=== PATIENT | male | born 1950 | race Caucasian/White ===

== ENCOUNTER 2016-07-14 08:53 | Outpatient (CLI) | payer OTHER ==
--- NOTE | 2016-07-14 10:51 | DIAGNOSTIC IMAGING REPORT ---
PROCEDURE: XR CHEST 2 VIEW INDICATION: COUGH TECHNIQUE: Two views. COMPARISON: None. FINDINGS: The cardiomediastinal contour and central vasculature are within normal limits. Minor patchy parenchymal density in the right infrahilar region/ right middle lobe. No pleural effusion, or pneumothorax. The visualized osseous structures demonstrate flowing anterior osteophytes in the mid thoracic spine. IMPRESSION: 1. Small opacity right middle lobe suspicious for infectious or inflammatory process. Given history of smoking, follow-up chest x-ray in 1 month recommended to ensure clearance. 2. Anterior endplate osteophytes in the mid thoracic spine.
== END 2016-07-14 23:00 ==
LOC: XR SRH 08:53
DX: R05 Cough (principal); R91.8 Other nonspecific abnormal finding of lung field; M25.78 Osteophyte, vertebrae; Z87.891 Personal history of nicotine dependence

== ENCOUNTER 2016-08-17 09:11 | Outpatient (CLI) | payer OTHER ==
--- NOTE | 2016-08-17 09:49 | DIAGNOSTIC IMAGING REPORT ---
PROCEDURE: XR CHEST 2 VIEW INDICATION: COUGH TECHNIQUE: PA and lateral views. COMPARISON: Chest 07/14/2016 FINDINGS: Lungs are clear. Heart and mediastinum are normal. Thorax is normal. IMPRESSION: 1. Negative chest.
== END 2016-08-17 23:00 ==
LOC: XR SRH 09:11
DX: R05 Cough (principal)